=== PATIENT | male | born 1970 | race Caucasian/White ===

== ENCOUNTER 2017-12-02 12:50 | Emergency (ER) | payer MEDICARE ==
[~2017-12-02] VITALS: Wt 106.1 kg
[2017-12-02 12:50] VITALS: BP 161/104
[2017-12-02] MEDS ORDERED: VENTOLIN 02.5 MG/3 M INH (13:08)
[2017-12-02] MEDS ORDERED: [UNRECOGNIZED DRUG - REMARK] PO (13:09)
[2017-12-02] MEDS ORDERED: LISINOPRIL30 MG PO (13:09)
[2017-12-02] MEDS ORDERED: "\\\"CHOLESTEROL MED\\\"" PO (13:10)
[2017-12-02 13:12] VITALS: BP 180/108
[2017-12-02 13:25] LABS: BASO # 0.1 10*3/uL (0.0-0.1); BASO % 0.8 % (0.0-1.0); EOS # 0.5 10*3/uL (0.0-0.4); HEMATOCRIT 44.8 % (42.0-52.0); HEMOGLOBIN 15.7 g/dl (14.0-18.0); LYMPH # 3.1 10*3/uL (1.3-4.4); LYMPH % 30.6 % (27.0-41.0); MEAN CELL VOLUME 90.1 fl (80.0-94.0); MEAN CORPUSCULAR HGB 31.6 pg (27.0-31.0); MEAN PLATELET VOLUME 10.7 fl (9.6-12.3); MONO % 9.9 % (3.0-9.0); NEUT # 5.4 10*3/uL (2.3-7.9); PLATELET COUNT AUTOMATED 214 10*3/uL (130-400); RED BLOOD COUNT 4.97 10*6/uL (4.50-5.90); RED CELL DISTRI WIDTH 12.2 % (0-14.5); WHITE BLOOD COUNT 10.2 10*3/uL (4.8-10.8)
[2017-12-02 13:43] LABS: ACT PARTIAL THROMBO TIME 23.9 SECONDS (20.8-31.5); INTERNATIONAL NORM RATIO 0.9 (2.0-3.5)
[2017-12-02 13:45] LABS: ALBUMIN 4.1 gm/dl (3.1-4.5); ALKALINE PHOSPHATASE 74 U/L (45-117); BUN 19 mg/dl (7-24); CHLORIDE 106 mmol/L (98-107); CREATININE 1.51 mg/dL (0.70-1.30); POTASSIUM 4.2 mmol/L (3.5-5.1); SGOT/AST 24 IU/L (3-35); SGPT/ALT 50 U/L (12-78); SODIUM 141 mmol/L (136-145); TOTAL PROTEIN 7.1 gm/dL (6.4-8.2)
[2017-12-02 13:46] LABS: TROPONIN I < 0.015 ng/ml (<0.045)
[2017-12-02 14:09] VITALS: BP 162/92
== END 2017-12-02 14:24 | disposition left against medical advice (07) ==
LOC: ED 12:50 → EDHOLD 13:57 → ED 14:24
PROVIDERS: Nurse Practitioner Family
DX: R07.9 Chest pain, unspecified (principal); N17.9 Acute kidney failure, unspecified; R73.9 Hyperglycemia, unspecified; J45.909 Unspecified asthma, uncomplicated

== ENCOUNTER 2018-02-22 08:53 | Emergency (ER) | payer MEDICARE ==
[~2018-02-22] VITALS: Wt 107.0 kg
[~2018-02-22 08:53] MED LIST: "\\\"CHOLESTEROL MED\\\"" PO; LISINOPRIL30 MG PO; VENTOLIN 02.5 MG/3 M INH; [UNRECOGNIZED DRUG - REMARK] PO
[2018-02-22] MEDS ORDERED: CARVEDILOL6.25 MG PO (09:05)
[2018-02-22] MEDS ORDERED: PRAVASTATIN SOD40 MG PO (09:06)
[2018-02-22] MEDS ORDERED: SILDENAFIL20 M1 PO (09:06)
[2018-02-22] MEDS ORDERED: AMOXICILLIN500 M2 PO (09:27)
[2018-02-22] MEDS ORDERED: IBUPROFEN600 MG PO (09:28)
[2018-02-22] MEDS ORDERED: TESSALON PERLE100 M1 PO (10:13)
[2018-02-22] MEDS ORDERED: PREDNISONE20 M1 PO (10:13)
[2018-02-22] MEDS ORDERED: PROVENTIL HFA6.7 GM INH (10:13)
[2018-02-22] MEDS ORDERED: COREG6.25 MG PO (10:13)
[2018-02-22] MEDS ORDERED: DOXYCYCLINE100 M3 PO (10:13)
== END 2018-02-22 10:26 | disposition home or self-care (01) ==
LOC: ED 08:53
DX: J44.1 Chronic obstructive pulmonary disease with (acute) exacerbation (principal); R19.7 Diarrhea, unspecified; E78.5 Hyperlipidemia, unspecified; Z79.899 Other long term (current) drug therapy; Z76.0 Encounter for issue of repeat prescription

== ENCOUNTER 2018-03-09 16:25 | Emergency (ER) | payer MEDICARE ==
[~2018-03-09 16:25] MED LIST changes: +AMOXICILLIN500 M2 PO; +CARVEDILOL6.25 MG PO; +COREG6.25 MG PO; +DOXYCYCLINE100 M3 PO; +IBUPROFEN600 MG PO; +PRAVASTATIN SOD40 MG PO; +PREDNISONE20 M1 PO; +PROVENTIL HFA6.7 GM INH; +SILDENAFIL20 M1 PO; +TESSALON PERLE100 M1 PO
[2018-03-09] MEDS ORDERED: AMOXICILLIN500 M2 PO (17:40)
[2018-03-09] MEDS ORDERED: PROAIR HFA8.5 GM INH (17:40)
[2018-03-09] MEDS ORDERED: PREDNISONE20 M1 PO (17:40)
== END 2018-03-09 17:49 | disposition home or self-care (01) ==
LOC: ED 16:25
DX: J44.1 Chronic obstructive pulmonary disease with (acute) exacerbation (principal); F17.200 Nicotine dependence, unspecified, uncomplicated; Z79.899 Other long term (current) drug therapy

== ENCOUNTER 2018-03-18 16:11 | Emergency (ER) | payer MEDICARE ==
[~2018-03-18] VITALS: Ht 177.8 cm; Wt 106.6 kg
[2018-03-18 16:11] VITALS: BP 186/100
[~2018-03-18 16:11] MED LIST changes: +PROAIR HFA8.5 GM INH
[2018-03-18 16:34] LABS: HEMATOCRIT 46.2 % (42.0-52.0); HEMOGLOBIN 15.8 g/dl (14.0-18.0); MEAN CORPUSCULAR HGB 31.8 pg (27.0-31.0); MEAN CORPUSCULAR HGB CONC 34.2 g/dl (33.0-37.0); PLATELET COUNT AUTOMATED 187 10*3/uL (130-400); RED BLOOD COUNT 4.97 10*6/uL (4.50-5.90); RED CELL DISTRI WIDTH 12.4 % (0-14.5); WHITE BLOOD COUNT 15.8 10*3/uL (4.8-10.8)
[2018-03-18 16:43] LABS: ACT PARTIAL THROMBO TIME 21.5 SECONDS (20.8-31.5); INTERNATIONAL NORM RATIO 0.9 (2.0-3.5)
[2018-03-18 16:54] LABS: ALBUMIN 3.5 gm/dl (3.1-4.5); ALKALINE PHOSPHATASE 47 U/L (45-117); BUN 27 mg/dl (7-24); CHLORIDE 104 mmol/L (98-107); CREATININE 1.41 mg/dL (0.70-1.30); SGOT/AST 29 IU/L (3-35); SGPT/ALT 78 U/L (12-78); SODIUM 139 mmol/L (136-145); TOTAL PROTEIN 6.6 gm/dL (6.4-8.2); TROPONIN I 0.022 ng/ml (<0.045)
[2018-03-18 16:56] LABS: PLATELET SUFFICIENCY NORMAL (NORMAL); TOTAL CELLS COUNTED 100 #CELLS
[2018-03-18 17:07] VITALS: BP 151/87
[2018-03-18 17:16] LABS: URINE AMPHETAMINES < 1000 (1000ng/ml); URINE BARBITURATES < 200 (200ng/ml); URINE BENZODIAZEPINES < 200 (200ng/ml); URINE CANNABINOIDS (THC) < 50 (50ng/ml); URINE COCAINE < 300 (300ng/ml); URINE METHADONE < 300 (300ng/ml); URINE OPIATES > 300 (300ng/ml)
[2018-03-18 17:17] LABS: URINE PHENCYCLIDINE < 25 (25ng/ml)
== END 2018-03-18 17:30 | disposition left against medical advice (07) ==
LOC: ED 16:11 → EDHOLD 17:04 → ED 17:04
PROVIDERS: Emergency Medicine
DX: R07.89 Other chest pain (principal); R06.02 Shortness of breath; R42 Dizziness and giddiness; R11.0 Nausea; I10 Essential (primary) hypertension; E78.00 Pure hypercholesterolemia, unspecified; I25.10 Atherosclerotic heart disease of native coronary artery without angina pectoris; J44.1 Chronic obstructive pulmonary disease with (acute) exacerbation; Z79.899 Other long term (current) drug therapy

== ENCOUNTER 2018-04-23 10:52 | Emergency (ER) | payer SELFPAY ==
[~2018-04-23] VITALS: Wt 107.0 kg
[2018-04-23 11:25] LABS: BASO # 0.1 10*3/uL (0.0-0.1); BASO % 0.7 % (0.0-1.0); EOS # 0.5 10*3/uL (0.0-0.4); EOS % 4.3 % (1.0-4.0); HEMATOCRIT 48.9 % (42.0-52.0); HEMOGLOBIN 17.1 g/dl (14.0-18.0); LYMPH # 3.9 10*3/uL (1.3-4.4); LYMPH % 32.1 % (27.0-41.0); MEAN CELL VOLUME 90.1 fl (80.0-94.0); MEAN CORPUSCULAR HGB 31.5 pg (27.0-31.0); MEAN PLATELET VOLUME 10.9 fl (9.6-12.3); MONO # 1.1 10*3/uL (0.1-1.0); MONO % 9.3 % (3.0-9.0); NEUT # 6.4 10*3/uL (2.3-7.9); NEUT % 52.4 % (47.0-73.0); PLATELET COUNT AUTOMATED 196 10*3/uL (130-400); RED BLOOD COUNT 5.43 10*6/uL (4.50-5.90); RED CELL DISTRI WIDTH 12.1 % (0-14.5); WHITE BLOOD COUNT 12.2 10*3/uL (4.8-10.8)
[2018-04-23 11:38] LABS: ALBUMIN 3.8 gm/dl (3.1-4.5); CREATININE 1.61 mg/dL (0.70-1.30); POTASSIUM 3.6 mmol/L (3.5-5.1); TOTAL PROTEIN 6.9 gm/dL (6.4-8.2)
[2018-04-23] MEDS ORDERED: DELTASONE20 M1 PO (12:26)
[2018-04-23] MEDS ORDERED: VIBRAMYCIN100 MG PO (12:26)
[2018-04-23] MEDS ORDERED: PROAIR HFA8.5 GM INH (17:27)
[2018-04-23] MEDS ORDERED: FLOVENT HFA10.6 GM INH (17:27)
== END 2018-04-23 12:33 | disposition home or self-care (01) ==
LOC: ED 10:52
PROVIDERS: Physician Assistant
DX: J44.1 Chronic obstructive pulmonary disease with (acute) exacerbation (principal); Z79.899 Other long term (current) drug therapy

== ENCOUNTER 2018-07-12 15:22 | Emergency (ER) | payer SELFPAY ==
[~2018-07-12] VITALS: Wt 103.0 kg
--- NOTE | ~2018-07-12 | EKG ---
[place], [place] ELECTROCARDIOGRAM REPORT NAME: LYDIA BARONE UNIT #: [id number] ROOM: DOCTOR: SHENA DRAFT REPORT BIRTHDATE: [birth year] [facility] Test Date: 2018-07-12 Test Time: 15:36:48 Pat Name: LYDIA BARONE Department: Room: Gender: Senior Project Controls Specialist: SS RESP : 1970 Requested By: TOM REYES Order Number: [id number] Reading MD: Kylah Galan MD Measurements Intervals [place] Rate: 71 P: 21 DC: 170 QRS: -14 QRSD: 116 T: -21 QT: 418 QTc: 455 Interpretive Statements Sinus rhythm Incomplete right bundle branch block ST elev, probable normal early repol pattern Compared to ECG 06/25/2018 17:03:39 ST (T wave) deviation now present T-wave abnormality no longer present Electronically Signed On 07-13-2018 10:46:44 PDT by Kylah Galan MD CM:EKGRPT:ELECTROCARDIOGRAM REPORT [id number] TOM JERNIGAN DRAFT REPORT TOM REYES DO
[~2018-07-12 15:22] MED LIST changes: +DELTASONE20 M1 PO; +FLOVENT HFA10.6 GM INH; +VIBRAMYCIN100 MG PO
[2018-07-12 16:01] LABS: BASO # 0.1 10*3/uL (0.0-0.1); BASO % 0.9 % (0.0-1.0); EOS # 0.9 10*3/uL (0.0-0.4); HEMATOCRIT 47.1 % (42.0-52.0); HEMOGLOBIN 16.5 g/dl (14.0-18.0); LYMPH % 26.5 % (27.0-41.0); MEAN CELL VOLUME 91.8 fl (80.0-94.0); MEAN CORPUSCULAR HGB 32.2 pg (27.0-31.0); MEAN PLATELET VOLUME 11.2 fl (9.6-12.3); MONO % 8.5 % (3.0-9.0); NEUT # 6.2 10*3/uL (2.3-7.9); PLATELET COUNT AUTOMATED 218 10*3/uL (130-400); RED BLOOD COUNT 5.13 10*6/uL (4.50-5.90); RED CELL DISTRI WIDTH 12.1 % (0-14.5); WHITE BLOOD COUNT 11.2 10*3/uL (4.8-10.8)
[2018-07-12 16:09] LABS: ACT PARTIAL THROMBO TIME 22.4 SECONDS (20.8-31.5)
[2018-07-12 16:16] LABS: ALBUMIN 3.8 gm/dl (3.1-4.5); CREATININE 1.63 mg/dL (0.70-1.30); POTASSIUM 4.2 mmol/L (3.5-5.1); TROPONIN I 0.016 ng/ml (<0.045)
[2018-07-12] MEDS ORDERED: PREDNISONE50 MG PO (17:17)
[2018-07-12] MEDS ORDERED: ZITHROMAX250 MG PO (17:17)
[2018-08-01] MEDS ORDERED: FLOVENT DISKU100 MCG INH (15:49)
[2018-08-01] MEDS ORDERED: AMOXICILLIN875 MG PO (15:49)
[2018-08-01] MEDS ORDERED: COREG6.25 MG PO (15:49)
[2018-08-01] MEDS ORDERED: LISINOPRIL20 MG PO (15:49)
[2018-08-01] MEDS ORDERED: PREDNISONE10 MG PO (15:49)
== END 2018-07-12 18:05 | disposition home or self-care (01) ==
LOC: ED 15:22
PROVIDERS: Emergency Medicine
DX: J44.1 Chronic obstructive pulmonary disease with (acute) exacerbation (principal); I10 Essential (primary) hypertension; Z79.899 Other long term (current) drug therapy

== ENCOUNTER → 2018-08-11 | Outpatient (CLI) | payer SELFPAY ==
[~2018-08-11] MED LIST changes: +AMOXICILLIN875 MG PO; +CLARITIN10 MG PO; +FLOVENT DISKU100 MCG INH; +FLOVENT HFA12 GM INH; +LISINOPRIL20 MG PO; +PREDNISONE10 MG PO; +PREDNISONE50 MG PO; +ZITHROMAX250 MG PO
== END | disposition home or self-care (01) ==
LOC: RESCLI 01:51
DX: I12.9 Hypertensive chronic kidney disease with stage 1 through stage 4 chronic kidney disease, or unspecified chronic kidney disease (principal); N18.3 Chronic kidney disease, stage 3 (moderate); R07.9 Chest pain, unspecified; R44.0 Auditory hallucinations; E78.00 Pure hypercholesterolemia, unspecified; J45.30 Mild persistent asthma, uncomplicated; J44.9 Chronic obstructive pulmonary disease, unspecified; F41.9 Anxiety disorder, unspecified; F33.9 Major depressive disorder, recurrent, unspecified; F10.10 Alcohol abuse, uncomplicated; Z76.89 Persons encountering health services in other specified circumstances; Z71.6 Tobacco abuse counseling; Z79.899 Other long term (current) drug therapy; Z88.8 Allergy status to other drugs, medicaments and biological substances; Z87.891 Personal history of nicotine dependence

== ENCOUNTER 2018-09-11 12:27 | Emergency (ER) | payer MEDICAID ==
[~2018-09-11] VITALS: Ht 172.7 cm; Wt 108.9 kg
[~2018-09-11 12:27] MED LIST changes: -CLARITIN10 MG PO; -FLOVENT HFA12 GM INH
[2018-09-11] MEDS ORDERED: COREG6.25 MG PO (12:30)
[2018-09-11] MEDS ORDERED: LISINOPRIL30 MG PO (12:30)
[2018-09-11] MEDS ORDERED: FLOVENT HFA12 GM INH (12:30)
[2018-09-11 13:24] LABS: BASO # 0.1 10*3/uL (0.0-0.1); BASO % 0.8 % (0.0-1.0); EOS # 0.7 10*3/uL (0.0-0.4); EOS % 4.2 % (1.0-4.0); HEMATOCRIT 47.3 % (42.0-52.0); HEMOGLOBIN 16.8 g/dl (14.0-18.0); LYMPH # 3.9 10*3/uL (1.3-4.4); LYMPH % 25.1 % (27.0-41.0); MEAN CELL VOLUME 89.6 fl (80.0-94.0); MEAN CORPUSCULAR HGB 31.8 pg (27.0-31.0); MEAN CORPUSCULAR HGB CONC 35.5 g/dl (33.0-37.0); MEAN PLATELET VOLUME 11.2 fl (9.6-12.3); MONO # 1.4 10*3/uL (0.1-1.0); NEUT # 9.2 10*3/uL (2.3-7.9); NEUT % 59.7 % (47.0-73.0); PLATELET COUNT AUTOMATED 233 10*3/uL (130-400); RED BLOOD COUNT 5.28 10*6/uL (4.50-5.90); RED CELL DISTRI WIDTH 11.9 % (0-14.5); WHITE BLOOD COUNT 15.5 10*3/uL (4.8-10.8)
[2018-09-11 13:37] LABS: CREATININE 1.59 mg/dL (0.70-1.30); POTASSIUM 3.9 mmol/L (3.5-5.1); TOTAL PROTEIN 7.2 gm/dL (6.4-8.2)
[2018-09-11] MEDS ORDERED: PROAIR HFA8.5 GM INH (13:48)
[2018-09-11] MEDS ORDERED: CLARITIN10 MG PO (13:48)
[2018-09-11] MEDS ORDERED: PREDNISONE10 MG PO (13:48)
[2018-09-11] MEDS ORDERED: VIBRAMYCIN100 MG PO (13:48)
== END 2018-09-11 14:15 | disposition home or self-care (01) ==
LOC: ED 12:27
PROVIDERS: Nurse Practitioner Family
DX: J20.9 Acute bronchitis, unspecified (principal); I12.9 Hypertensive chronic kidney disease with stage 1 through stage 4 chronic kidney disease, or unspecified chronic kidney disease; N18.9 Chronic kidney disease, unspecified; R11.2 Nausea with vomiting, unspecified; R19.7 Diarrhea, unspecified; J44.9 Chronic obstructive pulmonary disease, unspecified; Z79.899 Other long term (current) drug therapy

== ENCOUNTER 2018-10-12 12:34 | Emergency (ER) | payer MEDICARE, MEDICAID ==
[~2018-10-12] VITALS: Ht 177.8 cm; Wt 108.9 kg
--- NOTE | ~2018-10-12 | EKG ---
[place], [place] ELECTROCARDIOGRAM REPORT NAME: LYDIA BARONE UNIT #: [id number] ROOM: DOCTOR: EPIPHANY DRAFT REPORT BIRTHDATE: [birth year] [facility] Test Date: 2018-10-12 Test Time: 12:42:47 Pat Name: LYDIA BARONE Department: Room: Gender: Supervisor [employer]: BLAKE : 1970 Requested By: ALVIN PHELPS Order Number: [id number] Reading MD: Marcelo Da Silva MD Measurements Intervals [place] Rate: 87 P: 12 [place]: 170 QRS: -4 QRSD: 109 T: 12 QT: 388 QTc: 467 Interpretive Statements Sinus rhythm Incomplete RBBB ST elev, probable normal early repol pattern Compared to ECG 07/12/2018 15:36:48 No significant change Electronically Signed On 10-12-2018 17:50:33 PST by Marcelo Da Silva MD CM:EKGRPT:ELECTROCARDIOGRAM REPORT [id number] ALVIN CHATTERJEE DRAFT REPORT ALVIN PHELPS M.D.
[~2018-10-12 12:34] MED LIST changes: +CLARITIN10 MG PO; +FLOVENT HFA12 GM INH
[2018-10-12 13:15] LABS: HEMATOCRIT 45.5 % (42.0-52.0); HEMOGLOBIN 16.6 g/dl (14.0-18.0); MEAN CELL VOLUME 90.1 fl (80.0-94.0); MEAN CORPUSCULAR HGB 32.9 pg (27.0-31.0); MEAN CORPUSCULAR HGB CONC 36.5 g/dl (33.0-37.0); MEAN PLATELET VOLUME 10.8 fl (9.6-12.3); PLATELET COUNT AUTOMATED 254 10*3/uL (130-400); RED BLOOD COUNT 5.05 10*6/uL (4.50-5.90); RED CELL DISTRI WIDTH 12.7 % (0-14.5); WHITE BLOOD COUNT 11.6 10*3/uL (4.8-10.8)
[2018-10-12 13:33] LABS: ALBUMIN 3.8 gm/dl (3.1-4.5); ALKALINE PHOSPHATASE 54 U/L (45-117); BUN 19 mg/dl (7-24); CHLORIDE 105 mmol/L (98-107); CREATININE 1.57 mg/dL (0.70-1.30); POTASSIUM 3.9 mmol/L (3.5-5.1); SGOT/AST 29 IU/L (3-35); SGPT/ALT 63 U/L (12-78); SODIUM 140 mmol/L (136-145)
[2018-10-12 13:34] LABS: TROPONIN I < 0.015 ng/ml (<0.045)
[2018-10-12 13:36] LABS: ATYPICAL LYMPHS 5 % (0-0); PLATELET SUFFICIENCY NORMAL (NORMAL); TOTAL CELLS COUNTED 100 #CELLS
[2018-10-12] MEDS ORDERED: DOXYCYCLINE100 M3 PO (14:18)
[2018-10-12] MEDS ORDERED: PREDNISONE20 M1 PO (14:18)
[2018-10-12] MEDS ORDERED: PROAIR HFA8.5 GM INH (14:18)
== END 2018-10-12 14:59 | disposition home or self-care (01) ==
LOC: ED 12:34
PROVIDERS: Nurse Practitioner Family
DX: J44.1 Chronic obstructive pulmonary disease with (acute) exacerbation (principal); I10 Essential (primary) hypertension; Z79.899 Other long term (current) drug therapy

== ENCOUNTER 2018-11-17 09:16 | Emergency (ER) | payer MEDICARE, MEDICAID ==
[~2018-11-17] VITALS: Ht 177.8 cm; Wt 111.1 kg
[2018-11-17] MEDS ORDERED: ZOFRAN4 MG PO (09:30)
[2018-11-17] MEDS ORDERED: PROAIR HFA8.5 GM INH (09:30)
[2018-11-17 09:57] LABS: BASO # 0.1 10*3/uL (0.0-0.1); BASO % 0.9 % (0.0-1.0); EOS # 0.4 10*3/uL (0.0-0.4); EOS % 3.9 % (1.0-4.0); HEMATOCRIT 45.4 % (42.0-52.0); HEMOGLOBIN 15.7 g/dl (14.0-18.0); LYMPH # 4.1 10*3/uL (1.3-4.4); LYMPH % 38.5 % (27.0-41.0); MEAN CELL VOLUME 95.8 fl (80.0-94.0); MEAN CORPUSCULAR HGB 33.1 pg (27.0-31.0); MEAN CORPUSCULAR HGB CONC 34.6 g/dl (33.0-37.0); MEAN PLATELET VOLUME 10.8 fl (9.6-12.3); MONO # 1.2 10*3/uL (0.1-1.0); MONO % 10.9 % (3.0-9.0); NEUT # 4.6 10*3/uL (2.3-7.9); NEUT % 43.2 % (47.0-73.0); PLATELET COUNT AUTOMATED 231 10*3/uL (130-400); RED BLOOD COUNT 4.74 10*6/uL (4.50-5.90); RED CELL DISTRI WIDTH 12.5 % (0-14.5); WHITE BLOOD COUNT 10.6 10*3/uL (4.8-10.8)
[2018-11-17 10:15] LABS: ALBUMIN 3.7 gm/dl (3.1-4.5); CREATININE 1.93 mg/dL (0.70-1.30); POTASSIUM 4.4 mmol/L (3.5-5.1); TOTAL PROTEIN 7.1 gm/dL (6.4-8.2)
== END 2018-11-17 10:40 | disposition home or self-care (01) ==
LOC: ED 09:16
PROVIDERS: Nurse Practitioner Family
DX: B34.9 Viral infection, unspecified (principal); R73.9 Hyperglycemia, unspecified; R05 Cough; R09.81 Nasal congestion; I12.9 Hypertensive chronic kidney disease with stage 1 through stage 4 chronic kidney disease, or unspecified chronic kidney disease; N18.9 Chronic kidney disease, unspecified; J44.9 Chronic obstructive pulmonary disease, unspecified; Z79.899 Other long term (current) drug therapy

== ENCOUNTER 2019-02-13 13:13 | Emergency (ER) | payer MEDICARE, MEDICAID ==
[~2019-02-13] VITALS: Ht 177.8 cm; Wt 108.9 kg
[~2019-02-13 13:13] MED LIST changes: +ZOFRAN4 MG PO
[2019-03-20] MEDS ORDERED: PROVENTIL HFA6.7 GM INH (09:34)
[2019-03-20] MEDS ORDERED: FLOVENT HFA10.6 GM INH (09:34)
[2019-03-20] MEDS ORDERED: PREDNISONE50 MG PO (09:34)
== END 2019-02-13 14:40 | disposition left against medical advice (07) ==
LOC: ED 13:13
DX: J44.1 Chronic obstructive pulmonary disease with (acute) exacerbation (principal); R06.82 Tachypnea, not elsewhere classified; I10 Essential (primary) hypertension; Z79.899 Other long term (current) drug therapy

== ENCOUNTER 2019-09-10 07:12 | Emergency (ER) | payer OTHER, MEDICAID ==
[~2019-09-10] VITALS: Ht 177.8 cm; Wt 106.6 kg
[2019-09-10] MEDS ORDERED: FLOVENT DISKU100 MCG INH (07:32)
[2019-09-10] MEDS ORDERED: PREDNISONE50 MG PO (07:32)
[2019-09-10] MEDS ORDERED: PROVENTIL HFA6.7 GM INH (07:32)
[2019-09-10] MEDS ORDERED: ZOFRAN4 MG PO (07:32)
[2019-09-10] MEDS ORDERED: Ipratropium Brom3 ML INH (07:32)
== END 2019-09-10 07:40 | disposition home or self-care (01) ==
LOC: ED 07:12
DX: J44.9 Chronic obstructive pulmonary disease, unspecified (principal); J45.41 Moderate persistent asthma with (acute) exacerbation; K52.9 Noninfective gastroenteritis and colitis, unspecified; E66.9 Obesity, unspecified; J45.909 Unspecified asthma, uncomplicated; I10 Essential (primary) hypertension; Z87.891 Personal history of nicotine dependence

== ENCOUNTER 2019-09-18 10:00 | Emergency (ER) | payer OTHER, MEDICAID ==
[~2019-09-18] VITALS: Ht 177.8 cm; Wt 104.3 kg
[~2019-09-18 10:00] MED LIST changes: +Ipratropium Brom3 ML INH
[2019-09-18] MEDS ORDERED: TESSALON PERLE100 M1 PO (11:23)
[2019-09-18] MEDS ORDERED: PREDNISONE50 MG PO (11:23)
[2019-09-18] MEDS ORDERED: ZITHROMAX250 MG PO (11:23)
== END 2019-09-18 11:30 | disposition home or self-care (01) ==
LOC: ED 10:00
DX: J20.9 Acute bronchitis, unspecified (principal); J44.9 Chronic obstructive pulmonary disease, unspecified; I10 Essential (primary) hypertension; G40.909 Epilepsy, unspecified, not intractable, without status epilepticus; F17.220 Nicotine dependence, chewing tobacco, uncomplicated; Z79.899 Other long term (current) drug therapy

== ENCOUNTER 2019-11-02 09:32 | Emergency (ER) | payer OTHER, MEDICAID ==
[~2019-11-02] VITALS: Ht 177.8 cm; Wt 104.3 kg
[2019-11-02 10:09] LABS: HEMATOCRIT 47.6 % (42.0-52.0); HEMOGLOBIN 16.5 g/dl (14.0-18.0); MEAN CELL VOLUME 92.2 fl (80.0-94.0); MEAN CORPUSCULAR HGB CONC 34.7 g/dl (33.0-37.0); MEAN PLATELET VOLUME 11.4 fl (9.6-12.3); PLATELET COUNT AUTOMATED 179 10*3/uL (130-400); RED BLOOD COUNT 5.16 10*6/uL (4.50-5.90); RED CELL DISTRI WIDTH 12.9 % (0-14.5); WHITE BLOOD COUNT 22.2 10*3/uL (4.8-10.8)
[2019-11-02 10:18] LABS: ACT PARTIAL THROMBO TIME 22.8 SECONDS (20.0-32.1); INTERNATIONAL NORM RATIO 0.9 (2.0-3.5)
[2019-11-02 10:21] LABS: ALBUMIN 3.5 gm/dl (3.1-4.5); ALKALINE PHOSPHATASE 50 U/L (45-117); BUN 32 mg/dl (7-24); CHLORIDE 106 mmol/L (98-107); CREATININE 1.78 mg/dL (0.70-1.30); POTASSIUM 4.5 mmol/L (3.5-5.1); SGOT/AST 15 IU/L (3-35); SGPT/ALT 47 U/L (12-78); SODIUM 138 mmol/L (136-145); TOTAL PROTEIN 6.4 gm/dL (6.4-8.2)
[2019-11-02 10:22] LABS: TROPONIN I < 0.015 ng/ml (<0.045)
[2019-11-02 10:32] LABS: PLATELET SUFFICIENCY NORMAL (NORMAL); TOTAL CELLS COUNTED 100 #CELLS; TOXIC GRANULATION SLIGHT
== END 2019-11-02 12:18 | disposition left against medical advice (07) ==
LOC: ED 09:32
PROVIDERS: Emergency Medicine
DX: R07.89 Other chest pain (principal); R11.2 Nausea with vomiting, unspecified; M79.602 Pain in left arm; I25.10 Atherosclerotic heart disease of native coronary artery without angina pectoris; I12.9 Hypertensive chronic kidney disease with stage 1 through stage 4 chronic kidney disease, or unspecified chronic kidney disease; N18.9 Chronic kidney disease, unspecified; J44.9 Chronic obstructive pulmonary disease, unspecified; G40.909 Epilepsy, unspecified, not intractable, without status epilepticus; F17.220 Nicotine dependence, chewing tobacco, uncomplicated; Z79.899 Other long term (current) drug therapy

== ENCOUNTER 2020-02-04 11:40 | Emergency (ER) | payer OTHER, MEDICAID ==
[~2020-02-04] VITALS: Ht 177.8 cm; Wt 111.1 kg
== END 2020-02-04 12:11 | disposition left against medical advice (07) ==
LOC: ED 11:40
DX: R06.2 Wheezing (principal); R19.7 Diarrhea, unspecified; Z53.21 Procedure and treatment not carried out due to patient leaving prior to being seen by health care provider

== ENCOUNTER 2020-07-04 14:18 | Emergency (ER) | payer OTHER ==
[~2020-07-04] VITALS: Ht 177.8 cm; Wt 104.3 kg
[2020-07-04 14:51] LABS: BASO # 0.1 10*3/uL (0.0-0.1); BASO % 0.4 % (0.0-1.0); EOS # 0.3 10*3/uL (0.0-0.4); EOS % 2.5 % (1.0-4.0); HEMATOCRIT 46.2 % (42.0-52.0); LYMPH # 2.6 10*3/uL (1.3-4.4); LYMPH % 20.6 % (27.0-41.0); MEAN CELL VOLUME 95.1 fl (80.0-94.0); MEAN CORPUSCULAR HGB 32.1 pg (27.0-31.0); MEAN CORPUSCULAR HGB CONC 33.8 g/dl (33.0-37.0); MEAN PLATELET VOLUME 10.8 fl (9.6-12.3); MONO # 1.1 10*3/uL (0.1-1.0); MONO % 8.8 % (3.0-9.0); NEUT # 8.3 10*3/uL (2.3-7.9); PLATELET COUNT AUTOMATED 185 10*3/uL (130-400); RED BLOOD COUNT 4.86 10*6/uL (4.50-5.90); RED CELL DISTRI WIDTH 12.3 % (0-14.5); WHITE BLOOD COUNT 12.5 10*3/uL (4.8-10.8)
[2020-07-04 15:01] LABS: ACT PARTIAL THROMBO TIME 25.2 SECONDS (20.0-32.1); INTERNATIONAL NORM RATIO 0.9 (2.0-3.5)
[2020-07-04 15:20] LABS: ALBUMIN 3.7 gm/dl (3.1-4.5); ALKALINE PHOSPHATASE 66 U/L (45-117); BUN 31 mg/dl (7-24); CHLORIDE 109 mmol/L (98-107); POTASSIUM 4.5 mmol/L (3.5-5.1); SGOT/AST 19 IU/L (3-35); SGPT/ALT 42 U/L (12-78); SODIUM 139 mmol/L (136-145); TOTAL PROTEIN 7.2 gm/dL (6.4-8.2)
[2020-07-04 15:22] LABS: TROPONIN I < 0.015 ng/ml (<0.045)
== END 2020-07-04 18:46 | disposition home or self-care (01) ==
LOC: ED 14:18
PROVIDERS: Emergency Medicine
DX: R07.9 Chest pain, unspecified (principal); J44.9 Chronic obstructive pulmonary disease, unspecified; I10 Essential (primary) hypertension; Z79.899 Other long term (current) drug therapy; Z87.891 Personal history of nicotine dependence

== ENCOUNTER 2020-09-25 14:58 | Emergency (ER) | payer OTHER ==
[~2020-09-25] VITALS: Wt 108.9 kg
== END 2020-09-25 15:40 | disposition left against medical advice (07) ==
LOC: ED 14:58
DX: Z04.3 Encounter for examination and observation following other accident (principal); Z53.21 Procedure and treatment not carried out due to patient leaving prior to being seen by health care provider; X58.XXXA Exposure to other specified factors, initial encounter; Y93.89 Activity, other specified; Y92.89 Other specified places as the place of occurrence of the external cause; Y99.8 Other external cause status

== ENCOUNTER 2021-01-14 09:16 | Emergency (ER) | payer OTHER ==
[~2021-01-14] VITALS: Wt 108.9 kg
[2021-01-14 09:54] LABS: BASO # 0.1 10*3/uL (0.0-0.1); EOS # 0.4 10*3/uL (0.0-0.4); EOS % 3.7 % (1.0-4.0); HEMATOCRIT 48.2 % (42.0-52.0); LYMPH # 3.8 10*3/uL (1.3-4.4); LYMPH % 33.5 % (27.0-41.0); MEAN CORPUSCULAR HGB 32.1 pg (27.0-31.0); MEAN CORPUSCULAR HGB CONC 34.9 g/dl (33.0-37.0); MEAN PLATELET VOLUME 11.2 fl (9.6-12.3); MONO # 1.1 10*3/uL (0.1-1.0); MONO % 9.3 % (3.0-9.0); NEUT # 5.7 10*3/uL (2.3-7.9); NEUT % 50.3 % (47.0-73.0); PLATELET COUNT AUTOMATED 192 10*3/uL (130-400); RED BLOOD COUNT 5.24 10*6/uL (4.50-5.90); WHITE BLOOD COUNT 11.3 10*3/uL (4.8-10.8)
[2021-01-14 10:04] LABS: ACT PARTIAL THROMBO TIME 24.7 SECONDS (20.0-32.1); INTERNATIONAL NORM RATIO 0.9 (2.0-3.5)
[2021-01-14 10:11] LABS: ALBUMIN 3.9 gm/dl (3.1-4.5); ALKALINE PHOSPHATASE 74 U/L (45-117); BUN 20 mg/dl (7-24); CHLORIDE 104 mmol/L (98-107); CPK 134 U/L (39-308); CREATININE 1.57 mg/dL (0.70-1.30); POTASSIUM 4.4 mmol/L (3.5-5.1); SGOT/AST 23 IU/L (3-35); SGPT/ALT 46 U/L (12-78); SODIUM 137 mmol/L (136-145); TOTAL PROTEIN 7.6 gm/dL (6.4-8.2)
[2021-01-14 10:12] LABS: ETHYL ALCOHOL < 3.0 mg/dl (<3); TROPONIN I < 0.015 ng/ml (<0.045)
== END 2021-01-14 12:02 | disposition home or self-care (01) ==
LOC: ED 09:16
PROVIDERS: Emergency Medicine
DX: F43.21 Adjustment disorder with depressed mood (principal); R41.3 Other amnesia; G40.909 Epilepsy, unspecified, not intractable, without status epilepticus; G20 Parkinson's disease; F32.9 Major depressive disorder, single episode, unspecified; J44.9 Chronic obstructive pulmonary disease, unspecified; I10 Essential (primary) hypertension; Z79.899 Other long term (current) drug therapy; Z79.2 Long term (current) use of antibiotics; Z86.73 Personal history of transient ischemic attack (TIA), and cerebral infarction without residual deficits

== ENCOUNTER 2021-02-08 10:47 | Emergency (ER) | payer OTHER ==
[~2021-02-08] VITALS: Wt 106.6 kg
[2021-02-08 11:05] LABS: BASO # 0.1 10*3/uL (0.0-0.1); BASO % 0.6 % (0.0-1.0); EOS # 0.4 10*3/uL (0.0-0.4); EOS % 4.4 % (1.0-4.0); HEMATOCRIT 43.5 % (42.0-52.0); LYMPH # 3.2 10*3/uL (1.3-4.4); LYMPH % 31.6 % (27.0-41.0); MEAN CELL VOLUME 94.2 fl (80.0-94.0); MEAN CORPUSCULAR HGB 32.3 pg (27.0-31.0); MEAN CORPUSCULAR HGB CONC 34.3 g/dl (33.0-37.0); MEAN PLATELET VOLUME 10.9 fl (9.6-12.3); MONO % 10.1 % (3.0-9.0); NEUT # 5.2 10*3/uL (2.3-7.9); NEUT % 52.3 % (47.0-73.0); PLATELET COUNT AUTOMATED 199 10*3/uL (130-400); RED BLOOD COUNT 4.62 10*6/uL (4.50-5.90); RED CELL DISTRI WIDTH 11.9 % (0-14.5)
[2021-02-08 11:16] LABS: INTERNATIONAL NORM RATIO 0.9 (2.0-3.5)
[2021-02-08 11:22] LABS: ALBUMIN 3.9 gm/dl (3.1-4.5); ALKALINE PHOSPHATASE 74 U/L (45-117); BUN 31 mg/dl (7-24); CHLORIDE 104 mmol/L (98-107); CREATININE 1.72 mg/dL (0.70-1.30); POTASSIUM 4.3 mmol/L (3.5-5.1); SGOT/AST 24 IU/L (3-35); SGPT/ALT 48 U/L (12-78); SODIUM 136 mmol/L (136-145); TOTAL PROTEIN 7.2 gm/dL (6.4-8.2)
[2021-02-08 11:27] LABS: TROPONIN I < 0.015 ng/ml (<0.045)
== END 2021-02-08 12:16 | disposition home or self-care (01) ==
LOC: ED 10:47
PROVIDERS: Student in an Organized Health Care Education/Training Program
DX: S29.011A Strain of muscle and tendon of front wall of thorax, initial encounter (principal); M79.602 Pain in left arm; R42 Dizziness and giddiness; J44.9 Chronic obstructive pulmonary disease, unspecified; Z79.899 Other long term (current) drug therapy; Z87.891 Personal history of nicotine dependence; X58.XXXA Exposure to other specified factors, initial encounter; Y93.89 Activity, other specified; Y92.89 Other specified places as the place of occurrence of the external cause; Y99.8 Other external cause status

== ENCOUNTER → 2021-03-16 | Outpatient (CLI) | payer OTHER | END | disposition home or self-care (01) | LOC: CT 03-12 08:00 | PROVIDERS: ATTEND Internal Medicine Critical Care Medicine | DX: R91.1 Solitary pulmonary nodule (principal); J44.1 Chronic obstructive pulmonary disease with (acute) exacerbation; I25.10 Atherosclerotic heart disease of native coronary artery without angina pectoris; Z87.891 Personal history of nicotine dependence; Z68.36 Body mass index [BMI] 36.0-36.9, adult; M47.9 Spondylosis, unspecified ==

== ENCOUNTER 2021-03-22 10:39 | Emergency (ER) | payer OTHER | END 2021-03-22 11:06 | disposition left against medical advice (07) | LOC: ED 10:39 | DX: R07.89 Other chest pain (principal); J45.909 Unspecified asthma, uncomplicated; Z53.21 Procedure and treatment not carried out due to patient leaving prior to being seen by health care provider ==

== ENCOUNTER 2021-04-12 07:22 | Emergency (ER) | payer OTHER ==
[~2021-04-12] VITALS: Ht 177.8 cm; Wt 106.6 kg
== END 2021-04-12 08:34 | disposition home or self-care (01) ==
LOC: ED 07:22
DX: S93.402A Sprain of unspecified ligament of left ankle, initial encounter (principal); Z79.899 Other long term (current) drug therapy; W10.9XXA Fall (on) (from) unspecified stairs and steps, initial encounter; Y93.89 Activity, other specified; Y92.89 Other specified places as the place of occurrence of the external cause; Y99.8 Other external cause status

== ENCOUNTER 2021-04-14 11:55 | Emergency (ER) | payer OTHER ==
[~2021-04-14] VITALS: Ht 177.8 cm; Wt 108.9 kg
== END 2021-04-14 14:05 | disposition left against medical advice (07) ==
LOC: ED 11:55
DX: S91.111A Laceration without foreign body of right great toe without damage to nail, initial encounter (principal); Z79.899 Other long term (current) drug therapy; W22.09XA Striking against other stationary object, initial encounter; Y93.89 Activity, other specified; Y92.89 Other specified places as the place of occurrence of the external cause; Y99.8 Other external cause status

== ENCOUNTER → 2021-04-16 | Outpatient (CLI) | payer OTHER | LOC: WOUNDCARE 00:27 | PROVIDERS: ATTEND Nurse Practitioner | DX: S91.111A Laceration without foreign body of right great toe without damage to nail, initial encounter (principal); J44.9 Chronic obstructive pulmonary disease, unspecified; J45.909 Unspecified asthma, uncomplicated; I10 Essential (primary) hypertension; G40.802 Other epilepsy, not intractable, without status epilepticus; X58.XXXA Exposure to other specified factors, initial encounter; Y93.89 Activity, other specified; Y92.89 Other specified places as the place of occurrence of the external cause; Y99.8 Other external cause status; Z87.891 Personal history of nicotine dependence ==

== ENCOUNTER → 2021-04-30 | Outpatient (CLI) | payer OTHER | LOC: WOUNDCARE 00:59 | PROVIDERS: ATTEND Nurse Practitioner | DX: S91.111D Laceration without foreign body of right great toe without damage to nail, subsequent encounter (principal); I10 Essential (primary) hypertension; J44.9 Chronic obstructive pulmonary disease, unspecified; G40.909 Epilepsy, unspecified, not intractable, without status epilepticus; X58.XXXD Exposure to other specified factors, subsequent encounter ==

== ENCOUNTER 2021-08-29 13:51 | Emergency (ER) | payer OTHER ==
[~2021-08-29] VITALS: Wt 108.9 kg
== END 2021-08-29 15:13 | disposition home or self-care (01) ==
LOC: ED 13:51
DX: F43.21 Adjustment disorder with depressed mood (principal); F43.0 Acute stress reaction; Z79.899 Other long term (current) drug therapy; Z98.890 Other specified postprocedural states

== ENCOUNTER → 2021-09-15 | Outpatient (CLI) | payer OTHER | END | disposition home or self-care (01) | LOC: CT 08:39 | PROVIDERS: ATTEND Internal Medicine Critical Care Medicine | DX: R91.1 Solitary pulmonary nodule (principal); J44.9 Chronic obstructive pulmonary disease, unspecified; Z68.34 Body mass index [BMI] 34.0-34.9, adult; Z87.891 Personal history of nicotine dependence ==

== ENCOUNTER 2022-01-17 09:24 | Emergency (ER) | payer OTHER ==
[~2022-01-17] VITALS: Ht 177.8 cm; Wt 108.9 kg
[2022-01-17 10:02] LABS: BASO # 0.1 10*3/uL (0.0-0.1); BASO % 0.7 % (0.0-1.0); EOS # 0.4 10*3/uL (0.0-0.4); EOS % 3.6 % (1.0-4.0); HEMATOCRIT 46.8 % (42.0-52.0); LYMPH # 3.2 10*3/uL (1.3-4.4); LYMPH % 32.4 % (27.0-41.0); MEAN CELL VOLUME 91.6 fl (80.0-94.0); MEAN CORPUSCULAR HGB 31.9 pg (27.0-31.0); MEAN CORPUSCULAR HGB CONC 34.8 g/dl (33.0-37.0); MEAN PLATELET VOLUME 11.2 fl (9.6-12.3); MONO # 0.9 10*3/uL (0.1-1.0); MONO % 8.8 % (3.0-9.0); NEUT # 5.3 10*3/uL (2.3-7.9); NEUT % 53.7 % (47.0-73.0); PLATELET COUNT AUTOMATED 176 10*3/uL (130-400); RED BLOOD COUNT 5.11 10*6/uL (4.50-5.90); RED CELL DISTRI WIDTH 11.7 % (0-14.5); WHITE BLOOD COUNT 9.9 10*3/uL (4.8-10.8)
[2022-01-17 10:17] LABS: ACT PARTIAL THROMBO TIME 24.8 SECONDS (20.0-32.1)
[2022-01-17 10:20] LABS: ALKALINE PHOSPHATASE 61 U/L (45-117); BUN 17 mg/dl (7-24); CHLORIDE 103 mmol/L (98-107); CREATININE 1.42 mg/dL (0.70-1.30); POTASSIUM 4.2 mmol/L (3.5-5.1); SGOT/AST 28 IU/L (3-35); SGPT/ALT 65 U/L (12-78); SODIUM 137 mmol/L (136-145); TOTAL PROTEIN 7.1 gm/dL (6.4-8.2)
[2022-01-17 10:28] LABS: ETHYL ALCOHOL < 3.0 mg/dl (<3)
== END 2022-01-17 11:43 | disposition left against medical advice (07) ==
LOC: ED 09:24
PROVIDERS: Emergency Medicine
DX: R07.9 Chest pain, unspecified (principal); R06.02 Shortness of breath; J44.9 Chronic obstructive pulmonary disease, unspecified; I10 Essential (primary) hypertension; Z79.899 Other long term (current) drug therapy; Z90.89 Acquired absence of other organs

== ENCOUNTER 2022-05-20 08:11 | Emergency (ER) | payer OTHER ==
[~2022-05-20] VITALS: Ht 177.8 cm; Wt 99.8 kg
== END 2022-05-20 09:14 | disposition home or self-care (01) ==
LOC: ED 08:11
DX: S00.03XA Contusion of scalp, initial encounter (principal); I10 Essential (primary) hypertension; J45.909 Unspecified asthma, uncomplicated; Z79.899 Other long term (current) drug therapy; V09.9XXA Pedestrian injured in unspecified transport accident, initial encounter; Y93.89 Activity, other specified; Y92.89 Other specified places as the place of occurrence of the external cause; Y99.9 Unspecified external cause status

== ENCOUNTER 2022-07-29 11:31 | Emergency (ER) | payer OTHER ==
[~2022-07-29] VITALS: Ht 180 cm; Wt 104.3 kg
[2022-07-29 12:03] LABS: BASO # 0.1 10*3/uL (0.0-0.1); BASO % 0.8 % (0.0-1.0); EOS # 0.4 10*3/uL (0.0-0.4); EOS % 3.6 % (1.0-4.0); HEMATOCRIT 47.6 % (42.0-52.0); LYMPH # 2.7 10*3/uL (1.3-4.4); LYMPH % 27.5 % (27.0-41.0); MEAN CELL VOLUME 92.4 fl (80.0-94.0); MEAN CORPUSCULAR HGB CONC 34.7 g/dl (33.0-37.0); MEAN PLATELET VOLUME 11.2 fl (9.6-12.3); MONO # 1.2 10*3/uL (0.1-1.0); MONO % 12.2 % (3.0-9.0); NEUT # 5.4 10*3/uL (2.3-7.9); NEUT % 55.1 % (47.0-73.0); PLATELET COUNT AUTOMATED 178 10*3/uL (130-400); RED BLOOD COUNT 5.15 10*6/uL (4.50-5.90); RED CELL DISTRI WIDTH 12.1 % (0-14.5); WHITE BLOOD COUNT 9.8 10*3/uL (4.8-10.8)
[2022-07-29 12:22] LABS: CREATININE 1.79 mg/dL (0.70-1.30); POTASSIUM 4.6 mmol/L (3.5-5.1); TOTAL PROTEIN 7.3 gm/dL (6.4-8.2)
[2022-07-29] MEDS ORDERED: PREDNISONE20 M1 PO (13:34)
== END 2022-07-29 13:41 | disposition home or self-care (01) ==
LOC: ED 11:31
PROVIDERS: Physician Assistant
DX: J06.9 Acute upper respiratory infection, unspecified (principal); Z20.822 Contact with and (suspected) exposure to COVID-19; J45.909 Unspecified asthma, uncomplicated; J44.9 Chronic obstructive pulmonary disease, unspecified; Z79.899 Other long term (current) drug therapy; Z90.89 Acquired absence of other organs

== ENCOUNTER 2022-08-27 07:19 | Emergency (ER) | payer OTHER ==
[~2022-08-27] VITALS: Wt 102.1 kg
== END 2022-08-27 08:30 | disposition left against medical advice (07) ==
LOC: ED 07:19
DX: J06.9 Acute upper respiratory infection, unspecified (principal); Z79.899 Other long term (current) drug therapy; Z90.89 Acquired absence of other organs

== ENCOUNTER 2022-08-31 05:31 | Emergency (ER) | payer OTHER ==
[~2022-08-31] VITALS: Ht 177.8 cm; Wt 99.8 kg
[2022-08-31] MEDS ORDERED: LIDODERM1 EACH T (06:31)
== END 2022-08-31 06:45 | disposition home or self-care (01) ==
LOC: ED 05:31
DX: M25.531 Pain in right wrist (principal); Z79.899 Other long term (current) drug therapy; Z90.89 Acquired absence of other organs; W18.39XA Other fall on same level, initial encounter; Y93.89 Activity, other specified; Y92.89 Other specified places as the place of occurrence of the external cause; Y99.8 Other external cause status

== ENCOUNTER 2022-10-17 00:30 | Emergency (ER) | payer OTHER ==
[~2022-10-17] VITALS: Ht 177.8 cm; Wt 97.5 kg
[~2022-10-17 00:30] MED LIST changes: +LIDODERM1 EACH T
[2022-10-17] MEDS ORDERED: PREDNISONE20 M1 PO (02:33)
[2022-10-17] MEDS ORDERED: ZITHROMAX250 MG PO (02:33)
== END 2022-10-17 02:40 | disposition home or self-care (01) ==
LOC: ED 00:30
DX: U07.1 COVID-19 (principal); J44.1 Chronic obstructive pulmonary disease with (acute) exacerbation; Z79.899 Other long term (current) drug therapy; Z90.89 Acquired absence of other organs

== ENCOUNTER 2022-10-31 05:30 | Emergency (ER) | payer OTHER ==
[~2022-10-31] VITALS: Ht 180.3 cm; Wt 98.0 kg
[2022-10-31] MEDS ORDERED: IBU800 M2 PO (06:05)
[2022-10-31] MEDS ORDERED: SILDENAFIL20 M1 PO (06:06)
[2022-10-31] MEDS ORDERED: PROVENTIL HFA6.7 GM INH (06:06)
[2022-10-31] MEDS ORDERED: CELECOXIB200 M1 PO (06:07)
[2022-10-31] MEDS ORDERED: RANOLAZINE ER500 MG PO (06:07)
[2022-10-31 06:08] LABS: BASO # 0.1 10*3/uL (0.0-0.1); BASO % 0.4 % (0.0-1.0); EOS % 0.1 % (1.0-4.0); HEMATOCRIT 47.1 % (42.0-52.0); LYMPH # 1.5 10*3/uL (1.3-4.4); LYMPH % 13.2 % (27.0-41.0); MEAN CELL VOLUME 92.4 fl (80.0-94.0); MEAN CORPUSCULAR HGB 32.9 pg (27.0-31.0); MEAN CORPUSCULAR HGB CONC 35.7 g/dl (33.0-37.0); MEAN PLATELET VOLUME 11.1 fl (9.6-12.3); MONO # 0.3 10*3/uL (0.1-1.0); MONO % 2.6 % (3.0-9.0); NEUT # 9.2 10*3/uL (2.3-7.9); NEUT % 81.7 % (47.0-73.0); PLATELET COUNT AUTOMATED 215 10*3/uL (130-400); RED CELL DISTRI WIDTH 11.9 % (0-14.5); WHITE BLOOD COUNT 11.2 10*3/uL (4.8-10.8)
[2022-10-31] MEDS ORDERED: ROSUVASTATIN CA20 MG PO (06:08)
[2022-10-31] MEDS ORDERED: AMLODIPINE BESYL5 MG PO (06:08)
[2022-10-31] MEDS ORDERED: PANTOPRAZOLE SO40 MG PO (06:08)
[2022-10-31] MEDS ORDERED: RYBELSUS7 MG PO (06:08)
[2022-10-31] MEDS ORDERED: CARVEDILOL25 MG PO (06:09)
[2022-10-31] MEDS ORDERED: ROPINIROLE HYDRO1 MG PO (06:09)
[2022-10-31] MEDS ORDERED: BUDESONIDE-FO10.2 G1 INH (06:10)
[2022-10-31] MEDS ORDERED: METFORMIN HYDR500 MG PO (06:10)
[2022-10-31 06:21] LABS: ALKALINE PHOSPHATASE 49 U/L (46-116); BUN 17 mg/dl (9-23); CHLORIDE 103 mmol/L (98-107); CREATININE 1.39 mg/dL (0.70-1.30); POTASSIUM 4.4 mmol/L (3.4-5.1); SGPT/ALT 31 U/L (10-49); TOTAL PROTEIN 7.3 gm/dL (6.0-8.0)
[2022-10-31 06:25] LABS: ACT PARTIAL THROMBO TIME 25.5 SECONDS (20.0-32.1); INTERNATIONAL NORM RATIO 0.9 (2.0-3.5)
== END 2022-10-31 07:00 | disposition home or self-care (01) ==
LOC: ED 05:30
PROVIDERS: Emergency Medicine
DX: R05.3 Chronic cough (principal); U09.9 Post COVID-19 condition, unspecified; J44.9 Chronic obstructive pulmonary disease, unspecified; J45.909 Unspecified asthma, uncomplicated; I10 Essential (primary) hypertension; Z79.899 Other long term (current) drug therapy; Z90.89 Acquired absence of other organs

== ENCOUNTER 2025-09-23 09:45 | Emergency (ER) | payer OTHER ==
[~2025-09-23] VITALS: Ht 177.8 cm; Wt 85.3 kg
[~2025-09-23 09:45] MED LIST changes: +AMLODIPINE BESYL5 MG PO; +BUDESONIDE-FO10.2 G1 INH; +CARVEDILOL25 MG PO; +CELECOXIB200 M1 PO; +IBU800 M2 PO; +METFORMIN HYDR500 MG PO; +PANTOPRAZOLE SO40 MG PO; +RANOLAZINE ER500 MG PO; +ROPINIROLE HYDRO1 MG PO; +ROSUVASTATIN CA20 MG PO; +RYBELSUS7 MG PO
[2025-09-23] MEDS ORDERED: Albuterol Sulf/Ipratropium 3 ML VIAL NEB ONE (10:20)
[2025-09-23] MEDS ORDERED: IBUPROFEN 800 MG TAB PO ONE (10:20)
[2025-09-23] MEDS ORDERED: DIOVAN80 M1 PO (10:23)
[2025-09-23] MEDS ORDERED: ZITHROMAX250 MG PO (11:57)
[2025-09-23] MEDS ORDERED: PREDNISONE20 M1 PO (11:57)
== END 2025-09-23 11:59 | disposition home or self-care (01) ==
LOC: ED 09:45
DX: J45.901 Unspecified asthma with (acute) exacerbation (principal); B34.9 Viral infection, unspecified; J44.89 Other specified chronic obstructive pulmonary disease; I10 Essential (primary) hypertension; G40.909 Epilepsy, unspecified, not intractable, without status epilepticus; Z86.73 Personal history of transient ischemic attack (TIA), and cerebral infarction without residual deficits